=== PATIENT | female | born 1940 | race Caucasian/White ===

== ENCOUNTER 2021-06-29 13:51 | Emergency (ER) | payer OTHER, MEDICARE ==
[2021-06-29 14:11] VITALS: BP 157/63; PULSE 67; TEMP 98.2; BMI 37.3
[2021-06-29] MEDS ORDERED: AMOX TR/POT CLAV 875MG/125MG TABLETS (FP) PO ONE (14:17)
[2021-06-29] MEDS ORDERED: DIPHTH,PERTUSS(ACELL),TET 0.5 ML DISP.SYRIN IM ONE ×2 (14:18→14:27)
[2021-06-29] MEDS ORDERED: ACETAMINOPHEN 500 MG TABLET (FP) PO ONE (14:18)
[2021-06-29] MEDS ORDERED: ACETAMINOPHEN 500 MG TABLET (FP) ONE (14:27)
[2021-06-29] MEDS ORDERED: AMOX TR/POT CLAV 875MG/125MG TABLETS (FP) ONE (14:27)
== END 2021-06-29 15:25 | disposition home or self-care (01) ==
LOC: FER 13:51
PROC: 3E0234Z Introduction of Serum, Toxoid and Vaccine into Muscle, Percutaneous Approach (ICD-10-PCS; principal; 2021-06-29)
DX: S61.052A Open bite of left thumb without damage to nail, initial encounter (principal); L03.012 Cellulitis of left finger; W55.01XA Bitten by cat, initial encounter
CPT/HCPCS: 73140-TC-LT-FY; 90471; 90715; 99283-25